=== PATIENT | female | born 1990 | race Caucasian/White ===

== ENCOUNTER → 2023-09-10 | Outpatient (CLI) | payer BC ==
[2023-09-10 16:06] VITALS: BP 117/82; PULSE 86; RESP 17; TEMP 97.9
--- NOTE | 2023-09-10 16:07 | P.GSHP ---
History of Present Illness H&P Date: 09/10/23 Chief Complaint: right breast lump Gwendolyn is a 33 year old female seen in consultation for Dr Brice regarding a right breast mass. She had an untrasound done at [facility] on 09-09-23. This revealed 3 areas of concern in the right breast. At the 6 o'cloc k position 3 cm from the nipple there is a 4.2 cm in dimension lesion, second 1 within the 8 o'clock position 4 cm from the nipple measuring 4.9 cm, and third 1 within the 10 o'clock position 2 cm from the nipple measuring 4 cm Findings are suggestive of developing cyst ultrasound-guided cyst aspiration recommended. She started noting right breast pain in the upper outer quadrant approximately 2 months ago. It went from the front to the back of the breast. She can feel a lump in this area. She has not had any fever or chills. She is not complaining of any abnormal nipple discharge. She has not had any surgery on her breast. Note 09-02-23 Dr. Brice reviewed caffeine: 1 pop/day nicotine: none chocolate: occasional BCP: used the arm implant and IUD trying to get now Family History: none Hormonal History; menarche: 89 G0, trying to get , seeing a fertility specialist not started any medication periods regular now aff control Surgical History: colonoscopy wisdom tooth pulled Medical History: none Social History: nicotine: none alcohol: occasional drugs: none - Constitutional Constitutional: Denies chills, Denies fever - EENT Eyes: denies blurred vision, denies pain Ears: deny: decreased hearing, tinnitus Ears, nose, mouth and throat: Denies headache, Denies sore throat - Breasts Breasts: bilateral: as per HPI - Cardiovascular Cardiovascular: Denies chest pain, Denies shortness of breath - Respiratory Respiratory: Denies cough, Denies 7 - Gastrointestinal Gastrointestinal: Denies abdominal pain, Denies diarrhea, Denies nausea, Denies vomiting - Genitourinary (Female) Genitourinary: Denies dysuria, Denies hematuria - Menstruation Menstruation: Reports period normal - Musculoskeletal Musculoskeletal: Denies myalgias - Integumentary Integumentary: Denies pruritus, Denies rash - Neurological Neurological: Denies numbness, Denies weakness - Psychiatric Psychiatric: Denies anxiety, Denies depression - Endocrine Comment: gained 20 pounds in the past two months Endocrine: Denies fatigue, Denies weight change - Hematologic/Lymphatic Comment: none - Allergic/Immunologic Allergic/Immunologic: Reports as per HPI Past Medical History Past Medical History: No Reported History Additional Past Medical History / Comment(s): WISDOM TEETH REMOVED 2006, COLONOSCOPY 2017 History of Any Multi-Drug Resistant Organisms: None Reported Past Surgical History: No Surgical Hx Reported Past Anesthesia/Blood Transfusion Reactions: No Reported Reaction Past Psychological History: No Psychological Hx Reported Smoking Status: Never smoker Past Alcohol Use History: Occasional Past Drug Use History: None Reported Medications and Allergies Home Medications Medication Instructions Recorded Confirmed Type Cholecalciferol (Vitamin D3) 1 cap PO DAILY 09/10/23 09/10/23 History [Vitamin D3 (125 MCG = 5,000 IU)] Vit No.179/Iron/Folic 1 tab PO DAILY 09/10/23 09/10/23 History [ Tablet] Allergies Allergy/AdvReac Type Severity Reaction Status Date / Time No Known Allergies Allergy Unverified 09/10/23 15:25 Surgical - Exam Vital Signs Temp Pulse Resp BP Pulse Ox 97.9 F 86 17 117/82 97 09/10/23 15:27 09/10/23 15:27 09/10/23 15:27 09/10/23 15:27 09/10/23 15:27 - General no distress - Eyes normal ocular movement - Neck trachea midline - Respiratory normal respiratory effort, clear to auscultation - Cardiovascular Rhythm: regular Heart Sounds: normal: S1, S2 - Abdomen Abdomen: soft, non tender, no guarding, no rigid, no rebound - Integumentary normal turgor - Neurologic no disoriented, no combative - Musculoskeletal normal gait - Psychiatric oriented to time, oriented to person, oriented to place, speech is normal, memory intact Breast Exam: Bra: 38D Inspection: Mild fullness right breast upper outer quadrant Palpation: Right breast: Multi positional exam fullness upper outer quadrant region approximately 4 x 4 cm in size this is tender to palpation most likely consistent with simple cyst seen on ultrasound Right axilla: No adenopathy of concern Left breast: Multi positional exam no dominant masses or nodules of concern Left axilla: No adenopathy of concern Results ultrasound results reviewed, ultrasound personally reviewed Assessment and Plan Assessment: Impression: Multiple cyst in the right breast ranging in size from 4.9 cm to 4 cm Plan: Ultrasound-guided aspiration of the cyst in the breast We would consider aspiration of palpable cyst today however it is Wednesday afternoon and if we want to send cytology office would not be possible Patient understands and will follow-up after ultrasound-guided aspiration of the cyst in the breast, if this is going to take too long to get scheduled I will see her early next week and do it on Wednesday of next week CC: Dr. Brice, Dr. Christianson
== END | disposition home or self-care (01) ==
LOC: WWCWWP 15:04
PROVIDERS: ATTEND Surgery
DX: N60.01 Solitary cyst of right breast (principal)

== ENCOUNTER → 2023-09-20 | Outpatient (CLI) | payer BC ==
--- NOTE | 2023-09-20 14:57 | MM ---
Reason for Exam: Clinical finding. Baseline mammogram. Indicated Problems: Pain of the right side (Global) for 2 Month(s). Lump or thickening of the right side (size 490) for 2 Month(s). Patient History: Menarche at age 14. Patient has no children. Last menstrual period: 09/19/2023 Prior Study Comparison: 09/09/2023 Right US breast RT - 2, Unknown. Patient's first Mammogram. Tissue Density: The breasts are heterogeneously dense, which may obscure small masses. Findings: Analyzed By CAD. The pattern is symmetrical. There is a large rounded density in the posterior right breast. This measures 4.3 x 4.4 x 5.3 cm in diameter and is located 6.5 cm nipple. Ultrasound recommended for additional evaluation. This appears discordant with the outside ultrasound reporting 3 locations. Within the left breast no suspicious spiculated or lobular masses or cluster of microcalcifications, architectural distortion, or other secondary signs of malignancy radiographically apparent. Overall Assessment: Incomplete: need additional imaging evaluation, BI-RAD 0 Management: Diagnostic Breast Ultrasound of the right breast. A negative mammogram report should not preclude additional follow up of suspicious palpable abnormalities. Patient should continue monthly self breast exam. A clinical breast exam by your physician is recommended on an annual basis and results should be correlated with mammographic findings. Electronically signed and approved by: Jose A Ramos D.O. Radiologis
--- NOTE | 2023-09-20 15:38 | USB ---
Reason for Exam: Clinical finding. Patient History: Menarche at age 14. Patient has no children. Technique: Method: Whole Breast Handheld. Findings: The whole breast of the right breast, the axilla of the right breast and the retroareolar of the right breast were scanned. There is a hypoechoic slightly irregular margins. Within the right breast posterior position 7:00 7 cm of the nipple. No suspicious cysts are identified. Of this area is not a simple cyst and may be solid. Complex cyst less likely within the differential. Biopsy is recommended. Cyst aspiration could be attempted although this is felt to more likely be solid and cystic. The additional cystic areas reported on the prior examination cannot be reproduced on the current examination. Overall Assessment: Suspicious, BI-RAD 4 Management: Ultrasound Core Biopsy of the right breast. A clinical breast exam by your physician is recommended on an annual basis and results should be correlated with mammographic findings. This exam should not preclude additional follow-up of suspicious palpable abnormalities. Results were given to the patient verbally at the time of exam. Electronically signed and approved by: Jose A Ramos D.O. Radiologis
== END | disposition home or self-care (01) ==
LOC: RADMAMWWP 13:42
PROVIDERS: ATTEND Surgery
DX: N63.0 Unspecified lump in unspecified breast (principal)
CPT/HCPCS: 77062; 77066

== ENCOUNTER → 2023-10-06 | Day surgery (SDC) | payer BC | LOC: RADUSWWP 12:44 | PROVIDERS: ATTEND Surgery | DX: C50.911 Malignant neoplasm of unspecified site of right female breast (principal) | CPT/HCPCS: 88305; 88341; 88342 ==

== ENCOUNTER → 2023-10-14 | Outpatient (CLI) | payer BC ==
[2023-10-14 14:44] VITALS: BP 131/88; PULSE 94; RESP 16; TEMP 97.8
--- NOTE | 2023-10-14 14:58 | P.PN ---
Subjective Progress Note Date: 10/14/23 right breast lump Gwendolyn is a 33 year old female seen in consultation for Dr Brice regarding a right breast mass. She had an untrasound done at [facility] on 09-09-23. This revealed 3 areas of concern in the right breast. At the 6 o'clock position 3 cm from the nipple there is a 4.2 cm in dimension lesion, second 1 within the 8 o'clock position 4 cm from the nipple measuring 4.9 cm, and third 1 within the 10 o'clock position 2 cm from the nipple measuring 4 cm; repeat ultrasound at [facility] only revealed one lesion of concern in the right breast. Findings were suggestive of developing cyst ultrasound-guided cyst aspiration recommended. She started noting right breast pain in the upper outer quadrant approximately 2 months ago. It went from the front to the back of the breast. She can feel a lump in this area. She has not had any fever or chills. She is not complaining of any abnormal nipple discharge. She has not had any surgery on her breast. right breast core biopsy of the one area noted in the right breast on 10-06-23; pathology high grade3 IDC, ER low (+), NJ(-), HEr2(-) the patient states that the biopsy was painful. She had minimal ecchymosis. This has resolved. The area however seems to have increased in size. [id number] Note 09-02-23 Dr. Brice reviewed caffeine: 1 pop/day nicotine: none chocolate: occasional BCP: used the arm implant and IUD trying to get now Family History: maternal great aunt: breast cancer maternal 2nd cousin: breast cancer ? how many maternal great aunt: of colon cancer Hormonal History; menarche: 89 G0, trying to get , seeing a fertility specialist not started any medication periods regular now aff control Surgical History: colonoscopy wisdom tooth pulled Medical History: none Social History: nicotine: none alcohol: occasional drugs: none - Constitutional Constitutional: Denies chills, Denies fever - EENT Eyes: denies blurred vision, denies pain Ears: deny: decreased hearing, tinnitus Ears, nose, mouth and throat: Denies headache, Denies sore throat - Breasts Breasts: bilateral: as per HPI - Cardiovascular Cardiovascular: Denies chest pain, Denies shortness of breath - Respiratory Respiratory: Denies cough - Gastrointestinal Gastrointestinal: Denies abdominal pain, Denies diarrhea, Denies nausea, Denies vomiting - Genitourinary (Female) Genitourinary: Denies dysuria, Denies hematuria - Menstruation Menstruation: Reports period normal - Musculoskeletal Musculoskeletal: Denies myalgias - Integumentary Integumentary: Denies pruritus, Denies rash - Neurological Neurological: Denies numbness, Denies weakness - Psychiatric Psychiatric: Denies anxiety, Denies depression - Endocrine Comment: gained 20 pounds in the past two months Endocrine: Denies fatigue, Denies weight change - Hematologic/Lymphatic Comment: none - Allergic/Immunologic Allergic/Immunologic: Reports as per HPI Past Medical History Past Medical History: No Reported History Additional Past Medical History / Comment(s): WISDOM TEETH REMOVED 2006, COLONOSCOPY 2016 History of Any Multi-Drug Resistant Organisms: None Reported Past Surgical History: No Surgical Hx Reported Past Anesthesia/Blood Transfusion Reactions: No Reported Reaction Past Psychological History: No Psychological Hx Reported Smoking Status: Never smoker Past Alcohol Use History: Occasional Past Drug Use History: None Reported Medications and Allergies Home Medications Medication Instructions Recorded Confirmed Type Cholecalciferol (Vitamin D3) 1 cap PO DAILY 09/10/23 09/10/23 History [Vitamin D3 (125 MCG = 5,000 IU)] Vit No.179/Iron/Folic 1 tab PO DAILY 09/10/23 09/10/23 History [ Tablet] Allergies Allergy/AdvReac Type Severity Reaction Status Date / Time No Known Allergies Allergy Unverified 09/10/23 15:25 Objective - Vital Signs Vital signs: Vital Signs Temp 97.8 F 10/14/23 14:32 Pulse 94 10/14/23 14:32 Resp 16 10/14/23 14:32 BP 131/88 10/14/23 14:32 Pulse Ox 97 10/14/23 14:32 FiO2 Intake & Output 10/13/23 10/14/23 10/14/23 18:59 06:59 18:59 Weight 90.718 kg - Constitutional General appearance: Present: cooperative - EENT Eyes: Present: EOMI ENT: Present: hearing grossly normal - Neck Neck: Present: normal ROM - Respiratory Respiratory: bilateral: CTA - Cardiovascular Rhythm: regular Heart sounds: normal: S1, S2 - Gastrointestinal General gastrointestinal: Present: soft - Integumentary Integumentary: Present: normal turgor - Musculoskeletal Musculoskeletal: Present: gait normal - Psychiatric Psychiatric: Present: A&O x's 3, appropriate affect, intact judgment & insight - Additional findings Additional findings: Breast Exam: Bra: 38D Inspection: Mild fullness right breast upper outer quadrant Palpation: Right breast: examination post biopsy reveals that the area of concern in the upper outer quadrant of the right breast seems to have increased in size to approximately 8 x 6 cm on prior exam this was thought thought to be 4 x 4 cm it was tender to palpation and was felt at that time to be most likely consistent with a simple cyst Right axilla: No adenopathy of concern Left breast: Multi positional exam no dominant masses or nodules of concern Left axilla: No adenopathy of concern Assessment and Plan Assessment: Impression: Multiple cyst not seen on ultrasound from [facility], elda (+) IDC Plan: genetic testing present at tumor board oncotype testing appointment with medical oncology CC: Dr. Brice, Dr. Christianson
== END ==
LOC: WWCWWP 14:05
PROVIDERS: ATTEND Surgery
DX: R92.8 Other abnormal and inconclusive findings on diagnostic imaging of breast (principal); N63.10 Unspecified lump in the right breast, unspecified quadrant; N64.4 Mastodynia; R58 Hemorrhage, not elsewhere classified; N60.89 Other benign mammary dysplasias of unspecified breast; Z80.3 Family history of malignant neoplasm of breast

== ENCOUNTER → 2023-10-26 | Outpatient (CLI) | payer BC ==
--- NOTE | 2023-10-28 07:29 | CA ---
Transthoracic Echo Report Name: Gwendolyn Melvin Age: 33 Gender: F : 1990 Exam Date: 10/26/2023 11:16 Exam Location: [facility] Ht (in): 62 Wt (lb): 203 Ordering Physician: Kash Ware MD Attending/Referring Phys: Kash Ware MD Unit Nurse Heidi Demarco RDCS Procedure CPT: Indications: C50.919 breast ca Cardiac Hx: Technical Quality: Good Contrast 1: Total Dose (mL): Contrast 2: Total Dose (mL): MEASUREMENTS (Male / Female) Normal Values 2D ECHO LV Diastolic Diameter PLAX 4.1 cm 4.2 - 5.9 / 3.9 - 5.3 cm LV Systolic Diameter PLAX 2.5 cm IVS Diastolic Thickness 0.8 cm 0.6 - 1.0 / 0.6 - 0.9 cm LVPW Diastolic Thickness 0.7 cm 0.6 - 1.0 / 0.6 - 0.9 cm LV Relative Wall Thickness 0.4 LA Systolic Diameter LX 2.8 cm 3.0 - 4.0 / 2.7 - 3.8 cm LA Volume 31.6 cm??? 18 - 58 / 22 - 52 cm??? LA Volume Index 15.4 cm???/m??? 16 - 28 cm???/m??? M-MODE Aortic Root Diameter MM 2.6 cm LA Systolic Diameter MM 3.0 cm LA Ao Ratio MM 1.2 DOPPLER AV Peak Velocity 132.1 cm/s AV Peak Gradient 7.0 mmHg AV Mean Velocity 92.3 cm/s AV Mean Gradient 3.9 mmHg AV Velocity Time Integral 27.2 cm LVOT Peak Velocity 107.6 cm/s LVOT Peak Gradient 4.6 mmHg LVOT Velocity Time Integral 20.1 cm Mitral E Point Velocity 69.7 cm/s Mitral A Point Velocity 41.4 cm/s Mitral E to A Ratio 1.7 MV Deceleration Time 234.2 ms TR Peak Velocity 171.8 cm/s TR Peak Gradient 11.8 mmHg Right Ventricular Systolic Press 16.8 mmHg FINDINGS Left Ventricle Normal Left ventricular size, wall thickness, systolic function with no obvious regional wall motion abnormalities. Normal Left ventricular diastolic filling pattern. Left ventricular ejection fraction is estimated at 55-60 %. Normal LV strain. Right Ventricle Normal right ventricular size and function. Right ventricular systolic pressure within normal limits. Right Atrium Normal right atrial size. Left Atrium Normal left atrial size. Mitral Valve Structurally normal mitral valve. No mitral stenosis, regurgitation or prolapse. Aortic Valve Trileaflet aortic valve. No aortic valve stenosis or regurgitation. Tricuspid Valve Structurally normal tricuspid valve. Trace tricuspid regurgitation. Pulmonic Valve Structurally normal pulmonic valve. Trace pulmonic regurgitation. Pericardium No pericardial effusion. Aorta Normal size aortic root and proximal ascending aorta. CONCLUSIONS Normal LV systolic function and diastolic function and strain Normal right ventricular dimension and systolic function Normal pulmonary artery systolic pressure Normal intracardiac valves Normal aortic root and proximal ascending aorta No evidence of pericardial effusion Previewed by: Dr. Douglas Cope MD (Electronically Signed) Final Date: 28 Oct 2023 07:28
== END | disposition home or self-care (01) ==
LOC: RADECHMAIN 11:00
PROVIDERS: ATTEND Internal Medicine
DX: Z01.818 Encounter for other preprocedural examination (principal); C50.919 Malignant neoplasm of unspecified site of unspecified female breast
CPT/HCPCS: 93306

== ENCOUNTER → 2023-10-27 | Outpatient (CLI) | payer BC ==
--- NOTE | 2023-10-28 14:43 | BMR ---
EXAM DATE: 10/27/2023 EXAM DESCRIPTION: MRI-Breast Bilat (W/WO Contrast) INDICATION: Diagnosis of right breast cancer, pretreatment staging COMPARISON: PRIOR MRIs: None available. Correlation to mammograms: 09/20/2023. Correlation to ultrasound: 09/09/2023, 09/20/2023. CONTRAST: 9 cc Gadavist IV gadolinium contrast TECHNIQUE: Study was performed at [facility] with Radiologic interpretation by [facility]. Multiplanar multisequence MR imaging of both breasts was performed with a dedicated breast coil. Images were obtained before and after administration of IV gadolinium, using the standard breast mass protocol. Computer aided detection was utilized for interpretation. FINDINGS: LMP: Not provided General breast composition: The breast is heterogeneously dense Background parenchymal enhancement: Mild RIGHT BREAST: There is a round mildly lobulated heterogeneously enhancing mass with central necrosis in the right breast lower outer quadrant extending from 6-9 o'clock posterior depth approximately 10 cm from the nipple estimating 6.1 x 5.5 x 5.1 cm with rapid washout kinetics. This mass abuts the pectoralis muscle with mild enhancement of the pectoralis muscle and T2 hyperintensity of the pectoralis consistent with edema. 1.3 cm ventral to the primary mass there is a 1.5 cm ring-enhancing mass at approximately 9 o'clock, 6 cm from the nipple. Two 6 mm oval masses approximately 12 o'clock, 4 cm from the nipple measuring 0.6 cm. Two 5 mm oval masses at 6o'clock 3 cm from the nipple and 5 o'clock, 3 cm from the nipple. LEFT BREAST: Multiple small foci of enhancement and few small oval masses with T2 hyperintensity. At 1 o'clock, 6 cm from the nipple. There is a 6 mm oval mass with T2 hyperintensity at approximately 12 o'clock, 8 cm from the nipple which likely represents intramammary lymph node. Second similar appearing mass measuring 1.1 cm at 3 o'clock, 8 cm from the nipple. LYMPH NODES: There are 3 mildly enlarged right axillary lymph nodes. Two mildly enlarged subpectoral lymph nodes measuring up to 1.2 cm. There is no evidence of left axillary internal mammary adenopathy. IMPRESSION: RIGHT BREAST: 1. 6.1 cm mass in the right breast abuts and likely involves the right pectoralis muscle. No biopsy site marker was placed. Placement is recommended if neoadjuvant chemotherapy is planned. 2. Additional 1.5 cm satellite lesion, 1.3 cm ventral to the primary mass. Consider targeted ultrasound and clip placement if breast conservation is planned. 3. Two additional oval masses at 12 o'clock, 4 cm from the nipple are indeterminate. Targeted ultrasound with possible biopsy is recommended if breast conservation is planned. 4. Two 5 mm oval masses at 5 and 6 o'clock, 3 cm from the nipple. Targeted ultrasound and possible biopsy is recommended if breast conservation is planned. 5. Mild right axillary and subpectoral adenopathy suspicious for metastatic disease. Targeted ultrasound and biopsy of the right axillary lymph nodes could be performed if clinically indicated. LEFT BREAST: Several small foci and T2 hyperintense oval masses favoring benign findings and intramammary lymph nodes. OVERALL ASSESSMENT -- BI-RADS 4: Suspicious for malignancy MTDD
== END | disposition home or self-care (01) ==
LOC: RADMRIMAIN 16:52
PROVIDERS: ATTEND Internal Medicine
DX: N63.15 Unspecified lump in the right breast, overlapping quadrants (principal); N63.25 Unspecified lump in the left breast, overlapping quadrants; C50.911 Malignant neoplasm of unspecified site of right female breast; N63.12 Unspecified lump in the right breast, upper inner quadrant
CPT/HCPCS: 77049; A9585

== ENCOUNTER 2023-11-06 11:59 | Emergency (ER) | payer BC ==
--- NOTE | 2023-11-06 12:19 | ED ---
Skin/Abscess/FB HPI - General Chief complaint: Skin/Abscess/Foreign Body Stated complaint: chemo port infected fever Time Seen by Provider: 11/06/23 12:05 Source: patient, family, RN notes reviewed Mode of arrival: ambulatory Limitations: no limitations - History of Present Illness Initial comments: Quick [id number] female with history of current breast cancer presenting for concern of infection in port. States she had a port placed in her right upper chest 3 days ago and for the past day has had increasing pain in the area and reports a temperature at home of 99 F to 100.3. Denies nausea, vomiting. She states Dr. Ewa Felix placed the port. Patient states she is in the process of being diagnosed with breast cancer, she was told that she may have stage IV breast cancer and has been very anxious since this diagnosis. She saw her onc ologist yesterday where they scheduled imaging for diagnosis, they discussed reports and her increasing pain however states she was told it looked normal. - Related Data Home Medications Medication Instructions Recorded Confirmed Cholecalciferol (Vitamin D3) 1 cap PO DAILY 09/10/23 10/14/23 [Vitamin D3 (125 MCG = 5,000 IU)] Vit No.179/Iron/Folic 1 tab PO DAILY 09/10/23 10/14/23 [ Tablet] Allergies Allergy/AdvReac Type Severity Reaction Status Date / Time No Known Allergies Allergy Verified 11/06/23 12:04 Review of Systems ROS Statement: Those systems with pertinent positive or pertinent negative responses have been documented in the HPI. ROS Other: All systems not noted in ROS Statement are negative. Past Medical History Past Medical History: No Reported History, Cancer Additional Past Medical History / Comment(s): WISDOM TEETH REMOVED 2006, COLONOSCOPY 2016, breast CA History of Any Multi-Drug Resistant Organisms: None Reported Past Surgical History: No Surgical Hx Reported Past Anesthesia/Blood Transfusion Reactions: No Reported Reaction Past Psychological History: No Psychological Hx Reported Smoking Status: Never smoker Past Alcohol Use History: Occasional Past Drug Use History: None Reported General Exam - General Exam Comments Initial Comments: Visual Physical Exam Vital signs reviewed General: Well-appearing, nontoxic, no acute distress. Head: Normocephalic, atraumatic Eyes: PERRLA, EOMI ENT: Airway patent Chest: Nonlabored breathing Skin: No visual rash, normal skin tone Neuro: Alert and oriented 3 Musculoskeletal: No gross abnormalities Limitations: no limitations Head exam: Present: atraumatic, normocephalic, normal inspection ENT exam: Present: normal exam, mucous membranes moist Neck exam: Present: normal inspection. Absent: tenderness, meningismus, lymphadenopathy Respiratory exam: Present: normal lung sounds bilaterally. Absent: respiratory distress, wheezes, rales, rhonchi, stridor Cardiovascular Exam: Present: regular rate, normal rhythm, normal heart sounds. Absent: systolic murmur, diastolic murmur, rubs, gallop, clicks Skin exam: Present: warm, dry, intact, normal color, other (5 cm diagonal incision present on right upper chest. Incision is clean, dry, and intact. There is no drainage present or active bleeding currently. No surrounding erythema. There is mild contusions surrounding incision with tenderness to palpation.). Absent: rash Course Vital Signs 11/06/23 11/06/23 12:01 13:18 Temperature 98 F 99.4 F Pulse Rate 92 85 Respiratory 18 17 Rate Blood Pressure 138/96 123/93 O2 Sat by Pulse 95 96 Oximetry Medical Decision Making - Medical Decision Making I completed the quick note portion of this chart signed Deja Salinas PA-C Was pt. sent in by a medical professional or institution (DUC Turner, POLYMERIZATION SUPERVISOR, urgent care, hospital, or long term...) When possible be specific @ -No Did you speak to anyone other than the patient for history (EMS, parent, family, police, friend...)? What history was obtained from this source @ -No Did you review nursing and triage notes (agree or disagree)? Why? @ -I reviewed and agree with nursing and triage notes Were old charts reviewed (outside hosp., previous admission, EMS record, old EKG, old radiological studies, urgent care reports/EKG's, long term records)? Report findings @ -No old charts were reviewed Differential Diagnosis (chest pain, altered mental status, abdominal pain women, abdominal pain men, vaginal bleeding, weakness, fever, dyspnea, syncope, headache, dizziness, GI bleed, back pain, seizure, CVA, palpatations, mental health, musculoskeletal)? @ -Bacterial infection of port, cellulitis, abscess EKG interpreted by me (3pts min.). @ -None X-rays interpreted by me (1pt min.). @ -None done CT interpreted by me (1pt min.). @ -None done U/S interpreted by me (1pt. min.). @ -None done What testing was considered but not performed or refused? (CT, X-rays, U/S, labs)? Why? @ -None What meds were considered but not given or refused? Why? @ -None Did you discuss the management of the patient with other professionals (professionals i.e. Dr., PA, POLYMERIZATION SUPERVISOR, lab, RT, psych nurse, social insurance analyst, paramedic supervisor, teacher, liaison officer, caser)? Give summary @ -No Was smoking cessation discussed for >3mins.? @ -No Was critical care preformed (if so, how long)? @ -No Were there social determinants of health that impacted care today? How? (Homelessness, low income, unemployed, alcoholism, drug addiction, transportation, low edu. Level, literacy, decrease access to med. care, assisted, rehab)? @ -No Was there de-escalation of care discussed even if they declined (Discuss DNR or withdrawal of care, Hospice)? DNR status @ -No What co-morbidities impacted this encounter? (DM, HTN, Smoking, COPD, CAD, Cancer, CVA, ARF, Chemo, Hep., AIDS, mental health diagnosis, sleep apnea, morbid obesity)? @ -None Was patient admitted / discharged? Hospital course, mention meds given and route, prescriptions, significant lab abnormalities, going to OR and other pertinent info. @ -Patient was discharged. Patient was seen and evaluated for concern for infection of port on right upper chest that was placed 3 days ago. There is no sign of bacterial infection on examination, incision is clean dry and intact. Patient is afebrile. Lab work was unremarkable, white blood cell count was normal. Discussed with patient that there is no sign of bacterial infection upon examination. Strict alarm/return symptoms discussed with patient and patient shows understanding and agrees to plan. Encouraged follow-up with oncologist/PCP in 1 to 3 days. Patient discharged in stable condition. Case discussed with Dr. Harrington. Undiagnosed new problem with uncertain prognosis? @ -No Drug Therapy requiring intensive monitoring for toxicity (Heparin, Nitro, Insulin, Cardizem)? @ -No Were any procedures done? @ -No Diagnosis/symptom? @ -Chemo-Port Acute, or Chronic, or Acute on Chronic? @ -Acute Uncomplicated (without systemic symptoms) or Complicated (systemic symptoms)? @ -Uncomplicated Side effects of treatment? @ -No Exacerbation, Progression, or Severe Exacerbation? @ -No Poses a threat to life or bodily function? How? (Chest pain, [place], [place], pneumonia, PE, COPD, DKA, ARF, appy, cholecystitis, CVA, Diverticulitis, Homicidal, Suicidal, threat to staff... and all critical care pts) @ -No - Lab Data Result diagrams: 11/06/23 12:04 11/06/23 12:04 Lab Results 11/06/23 11/06/23 Range/Units 12:04 12:04 WBC 7.0 (3.8-10.6) k/uL RBC 4.94 (3.80-5.40) m/uL Hgb 14.0 (11.4-16.0) gm/dL Hct 43.0 (34.0-46.0) % MCV 87.1 (80.0-100.0) fL MCH 28.4 (25.0-35.0) pg MCHC 32.6 (31.0-37.0) g/dL RDW 13.3 (11.5-15.5) % Plt Count 212 (150-450) k/uL MPV 9.4 Neutrophils % 73 % Lymphocytes % 17 % Monocytes % 8 % Eosinophils % 1 % Basophils % 0 % Neutrophils # 5.1 (1.3-7.7) k/uL Lymphocytes # 1.2 (1.0-4.8) k/uL Monocytes # 0.6 (0-1.0) k/uL Eosinophils # 0.0 (0-0.7) k/uL Basophils # 0.0 (0-0.2) k/uL Sodium 139 (137-145) mmol/L Potassium 4.2 (3.5-5.1) mmol/L Chloride 110 H (98-107) mmol/L Carbon Dioxide 19 L (22-30) mmol/L Anion Gap 10 mmol/L BUN 11 (7-17) mg/dL Creatinine 0.53 (0.52-1.04) mg/dL Est GFR (CKD-EPI)AfAm >90 (>60 ml/min/1.73 sqM) Est GFR (CKD-EPI)NonAf >90 (>60 ml/min/1.73 sqM) Glucose 98 (74-99) mg/dL Calcium 9.5 (8.4-10.2) mg/dL Total Bilirubin 0.7 (0.2-1.3) mg/dL AST 70 H (14-36) U/L ALT 77 H (4-34) U/L Alkaline Phosphatase 68 (38-126) U/L Total Protein 7.6 (6.3-8.2) g/dL Albumin 4.3 (3.5-5.0) g/dL Disposition Clinical Impression: Port-A-Cath in place Disposition: HOME SELF-CARE Condition: Stable Instructions (If sedation given, give patient instructions): How to Care for Your Implanted Venous Access Port (DC) Additional Instructions: Please follow-up with PCP/oncologist within the week. Please return to the Emergency Department if symptoms worsen or any other concerns. Is patient prescribed a controlled substance at d/c from ED?: No Referrals: Jose A Christianson DO [Primary Care Provider] - 1-2 days Time of Disposition: 13:33
[2023-11-06 12:34] LABS: Basophils % (A) 0 %; Eosinophils % (A) 1 %; Lymphocytes # (A) 1.2 k/uL (1.0-4.8); Lymphocytes % (A) 17 %; MCH 28.4 pg (25.0-35.0); MCHC 32.6 g/dL (31.0-37.0); MCV 87.1 fL (80.0-100.0); Mean Platelet Volume 9.4; Monocytes # (A) 0.6 k/uL (0-1.0); Monocytes % (A) 8 %; Neutrophils # (A) 5.1 k/uL (1.3-7.7); Neutrophils % (A) 73 %; Platelet Count 212 k/uL (150-450); RBC 4.94 m/uL (3.80-5.40); RDW 13.3 % (11.5-15.5)
[2023-11-06 12:58] LABS: ALT 77 U/L (4-34); AST 70 U/L (14-36); African American GFR (CKD) >90 (>60 ml/min/1.73 sqM); Albumin 4.3 g/dL (3.5-5.0); Alkaline Phosphatase 68 U/L (38-126); Anion Gap 10 mmol/L; Blood Urea Nitrogen 11 mg/dL (7-17); Calcium 9.5 mg/dL (8.4-10.2); Carbon Dioxide 19 mmol/L (22-30); Chloride 110 mmol/L (98-107); Glucose 98 mg/dL (74-99); Non-African American GFR(CKD) >90 (>60 ml/min/1.73 sqM); Potassium 4.2 mmol/L (3.5-5.1); Sodium 139 mmol/L (137-145); Total Bilirubin 0.7 mg/dL (0.2-1.3); Total Protein 7.6 g/dL (6.3-8.2)
[2023-11-06 13:38] VITALS: BP 123/93; PULSE 85; RESP 17; TEMP 99.4
== END 2023-11-06 13:37 | disposition home or self-care (01) ==
LOC: EC 11:59
DX: Z45.2 Encounter for adjustment and management of vascular access device (principal)
CPT/HCPCS: 36415; 80053; 85025; 99283

== ENCOUNTER → 2023-11-10 | Outpatient (CLI) | payer BC ==
--- NOTE | 2023-11-16 11:38 | MR ---
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 COMPARISON: Pet/CT 11/04/2023 TECHNIQUE: Multi planar, multi sequence imaging was performed utilizing: T1-weighted, short-tau inver felix recovery and T2-weighted of the thoracic spine. IV Contrast: 10 cc Gadavist (none if empty) FINDINGS: Alignment: Alignment is within normal limits. Vertebral bodies have preserved heights. Spinal cord: Spinal cord is within normal limits for signal. Discs: Intervertebral disc signal is maintained. No evidence of significant spinal canal or neural fo raminal stenosis. There is no evidence of extradural defects or central spinal canal narrowing at any thoracic vertebral body level Osseous structures: No abnormal bony edema on inversion recovery sequences. No significant degenerati on changes. IMPRESSION: 1. No evidence for abnormal postcontrast enhancement. No evidence for metastatic disease. 2. No significant degeneration changes.
== END | disposition home or self-care (01) ==
LOC: RADMRIMAIN 10:35
PROVIDERS: ATTEND Internal Medicine
DX: C50.811 Malignant neoplasm of overlapping sites of right female breast (principal); M54.50 Low back pain, unspecified
CPT/HCPCS: 72157; A9585

== ENCOUNTER → 2023-11-11 | Outpatient (CLI) | payer BC ==
--- NOTE | 2023-11-16 11:03 | MR ---
EXAMINATION TYPE: MR brain/lspine wo/w con DATE OF EXAM: 11/16/2023 COMPARISON: Correlation PET CT 11/04/2023 HISTORY: 33-year-old female Breast cancer since Sep 2023, Pain in low back into Right side, TECHNIQUE: Multiplanar, multisequence images of the brain and brainstem were acquired before and aft er administration of 9 mL IV Gadavist. Diffusion weighted imaging is performed. Additional multipla kiran, multisequence scanning of the lumbar spine before and after IV contrast. FINDINGS: BRAIN: No evidence for acute infarction, hemorrhage, mass, mass effect, midline shift, herniation, effacemen t of basal cisterns, or extra-axial fluid collection. The ventricles and sulci are age-appropriate. Major intracranial flow voids are intact. T2/FLAIR weighted sequences show no white matter signal abnormality. Midline structures demonstrate normal morphology. The craniocervical junction is normal. Post contrast images demonstrate no evidence of pathologic enhancement. Dural venous sinuses are pat ent. Mild mucosal thickening ethmoid air cells. Rightward nasal septal deviation. Globes are intact. Diffu sely diminished calvarial and visualized cervical spine marrow signal without any focal lesion or abn ormal enhancement. LUMBAR SPINE: As in the head, diffusely diminished marrow signal without any focal lesions or abnormal osseous enha ncement. Mild to moderate degenerative disc disease L4-L5 and L5-S1 with desiccated bulging discs. Small poste rior fissure at L4-L5. At L5-S1, there is a superimposed small central disc extrusion with small amou nt of inferior disc migration. No spinal canal stenosis. Conus medullaris is normal. No abnormal enhancement within the spinal canal or the osseous structures. There appear to be prominent cervical nabothian cysts and prominent follicular change in the ovaries. On the left, there is minimal inferior foraminal narrowing at L4-L5 and mild at L5-S1. On the right, there is mild neuroforaminal narrowing at L5-S1. IMPRESSION: BRAIN: 1. Diminished marrow signal intensity without any focal lesions or abnormal osseous enhancement. Find ings suggest prominent red marrow likely in part relating to patient's age. Anemia, obesity, smoking, and chronic disease are other differential considerations. 2. No evidence for brain metastases or acute intracranial abnormality. LUMBAR SPINE: 3. Similar marrow appearance within the lumbar spine as mentioned above. No findings of osseous metas tases. 4. Mild to moderate degenerative disc disease L4-L5 and L5-S1 as above. There is a small posterior an nular fissure at L4-L5 and a small central disc extrusion with inferior migration of disc material at L5-S1. No spinal canal stenosis. 5. Mild bilateral neuroforaminal narrowing at L5-S1.
== END | disposition home or self-care (01) ==
LOC: RADMRIMAIN 12:20
PROVIDERS: ATTEND Internal Medicine
DX: C50.811 Malignant neoplasm of overlapping sites of right female breast (principal); M51.36 Other intervertebral disc degeneration, lumbar region; M51.37 Other intervertebral disc degeneration, lumbosacral region
CPT/HCPCS: 70553; 72158; A9585

== ENCOUNTER → 2023-11-29 | Outpatient (CLI) | payer BC ==
--- NOTE | 2023-11-29 08:37 | USB ---
Reason for Exam: Clinical finding. Patient History: Menarche at age 14. Patient has no children. Breast cancer, right, age 33. 10/06/2023, Malignant US biopsy breast VAD RT on the right side. Technique: Method: Whole Breast Handheld. Prior Study Comparison: 09/09/2023 Right US breast RT - 2, Unknown. 09/20/2023 Right US breast RT, [facility]. 09/20/2023 Bilateral MG 3D diag mammo w/cad [facility], [facility]. 10/27/2023 Bilateral MR breast bilat wo/w con, [facility]. Findings: The whole breast of the left breast, the axilla of the left breast and the retroareolar of the left breast were scanned. No solid or cystic masses are identified.. Overall Assessment: Negative, BI-RAD 1 Management: Diagnostic Mammogram of both breasts in 6 months. A clinical breast exam by your physician is recommended on an annual basis and results should be correlated with mammographic findings. This exam should not preclude additional follow-up of suspicious palpable abnormalities. Results were given to the patient verbally at the time of exam. Electronically signed and approved by: Lizandro Kwok M.D. Radiologis
== END | disposition home or self-care (01) ==
LOC: RADUSWWP 07:52
PROVIDERS: ATTEND Internal Medicine
DX: C50.811 Malignant neoplasm of overlapping sites of right female breast (principal)

== ENCOUNTER → 2024-06-12 | Outpatient (CLI) | payer BC | LOC: LABWHC1 12:52 | PROVIDERS: ATTEND Radiology Radiation Oncology | DX: C50.411 Malignant neoplasm of upper-outer quadrant of right female breast (principal) | CPT/HCPCS: 81025 ==